=== PATIENT | male | born 1980 | race Caucasian/White ===

== ENCOUNTER 2023-09-23 20:31 | Emergency (ER) | payer BC ==
[2023-09-23] MEDS ORDERED: hydrOXYzine HCl 25 MG Tab PO ONE (23:57)
[2023-09-24 00:23] LABS: BASOPHILS ABSOLUTE AUTO 0.06 K/uL (0.00-0.10); BASOPHILS PERCENT AUTO 0.5 % (0.1-1.3); EOSINOPHILS ABSOLUTE AUTO 0.08 K/uL (0.00-0.40); EOSINOPHILS PERCENT AUTO 0.6 % (0.0-5.4); HEMATOCRIT 45.1 % (38.4-49.7); HEMOGLOBIN 15.9 g/dL (12.9-16.9); IMMATURE GRAN ABSOLUTE AUTO 0.21 K/uL (0.00-0.23); IMMATURE GRAN PERCENT AUTO 1.7 % (0.0-0.7); LYMPHOCYTES ABSOLUTE AUTO 2.28 K/uL (0.8-3.3); LYMPHOCYTES PERCENT AUTO 18.2 % (11.4-47.7); MEAN CORPUSCULAR HEMOGLOBIN 30.1 pg (31.6-35.5); MEAN CORPUSCULAR HGB CONC 35.3 g/dL (31.6-35.5); MEAN CORPUSCULAR VOLUME 85.3 fL (81.4-99.0); MONOCYTES ABSOLUTE AUTO 0.99 K/uL (0.20-0.90); MONOCYTES PERCENT AUTO 7.9 % (3.3-12.6); NEUTROPHILS ABSOLUTE AUTO 8.91 K/uL (1.0-7.6); NEUTROPHILS PERCENT AUTO 71.1 % (40.0-78.1); PLATELET COUNT,PLT 334 K/uL (130-375); RED BLOOD CELL COUNT 5.29 M/uL (4.14-5.76); WHITE BLOOD CELL COUNT,WBC 12.5 K/uL (3.2-11.0)
[2023-09-24 00:34] LABS: EST CRCL DRUG DOSING (CG) 106.7 mL/min; POTASSIUM,K 3.5 mmol/L (3.6-5.2)
[2023-09-24 00:42] LABS: ANION GAP 19.5 mmol/L (5.0-14.0)
== END 2023-09-24 02:00 | disposition home or self-care (01) ==
LOC: JP.ED 20:31
DX: F41.9 Anxiety disorder, unspecified (principal); F17.210 Nicotine dependence, cigarettes, uncomplicated
CPT/HCPCS: 36415; 80048; 85025; 99284; A9270